=== PATIENT | male | born 1955 | race Caucasian/White ===

== ENCOUNTER 2021-05-14 13:07 | Outpatient (CLI) | payer OTHER, SELFPAY | END 2021-05-14 13:08 | disposition home or self-care (01) | LOC: ANHSURGERY 13:12 | PROVIDERS: PCP Family Medicine; Visit Provider Surgery | DX: Z01.812 Encounter for preprocedural laboratory examination (principal); K40.90 Unilateral inguinal hernia, without obstruction or gangrene, not specified as recurrent | CPT/HCPCS: 36415; 86850; 86900; 86901 ==

== ENCOUNTER 2021-05-18 00:06 | Day surgery (SDC) | payer OTHER, SELFPAY ==
[2021-05-13 13:20] VITALS: BMI 23.6
[2021-05-18] VITALS (9 sets, daily range): BP systolic 129–163; BP diastolic 76–88; PULSE 56–72; RESP 14–16; TEMP 36.6–36.8; O2SAT 95–100
[2021-05-18] MEDS: ACETAMINOPHEN 500 MG TABLET 1000 MG PO (07:22)
[2021-05-18] MEDS: LACTATED RINGERS 1,000 ML 30 ML IV CONT ×3 (07:25→11:17)
--- NOTE | 2021-05-18 07:30 | WPDANESEPPF ---
Anes - Initial Pre Proc Eval Procedure: Operation Date: 05/18/21 08:30 Proposed Procedures p Laparoscopic Right Inguinal Hernia Repair With Mesh, DaVinci Assisted - Tonny Neri DO Date/Time: 05/18/21 07:30 Surgeon: Tonny Neri DO Pre Op Diagnosis: Right Ing Hernia Patient Data Age: 65 Gender: M Height: 1.75 m Weight: 72.72 kg Allergies Allergy/AdvReac Type Severity Reaction Status Date / Time No Known Allergies Allergy Verified 05/18/21 06:50 Home Medications Medication Instructions Recorded Confirmed Type tadalafil 5 mg tablet See Rx Instructions .ROUTE 04/02/21 05/13/21 Rx .COMPLEX #90 tablet multivitamin [Multi-Vitamin] 1 tablet DAILY 05/13/21 05/18/21 History tamsulosin [Flomax] 0.4 mg PO QAM 05/13/21 05/18/21 History Patient hx anesthesia problems: post op nausea/vomiting Family hx anesthesia problems: none Results Review: All pre-operative results and documents have been reviewed as part of the pre-operative evaluation. [facility] Past Medical History Medical History (Updated 05/18/21 @ 07:30 by Didier Gallardo DO) BPH (benign prostatic hyperplasia) PONV (postoperative nausea and vomiting) Surgical History Surgical History H/O foot surgery Family History Family History Grandparent Hypertension Family history of coronary artery disease Father Family history of diabetes mellitus in first degree relative Mother Family history of coronary artery disease Social History Social History Smoking status: Never smoker Second hand tobacco smoke exposure: No Additional smoking assessment comments: PT DENIES ALL FORMS OF TOBACCO USE Alcohol intake: never Substance use: never Substance use type: does not use Living arrangements: alone Spiritual care concerns: No Anes - Eval Final PreProcedure Day of Procedure 05/18/21 07:30 Patient weight: normal Heart: regular rate and rhythm Lungs: clear to auscultation and normal air movement Airway: Mallampati scale class II Neurological: alert and oriented Last oral intake: >/= 8 hours ASA classification: II Emergent: no Anesthetic plan: proceed Anesthesia type and monitoring: general ETT and standard monitoring Results Review: All pre-operative results and documents have been reviewed as part of the pre-operative evaluation. Informed Consent: The patient's anesthetic plan and its attendant risks and benefits were discussed with the patient/family/POA. Questions were solicited and answers provided to the satisfaction of the patient/family/POA.
[2021-05-18] MEDS: KETOROLAC 15 MG/ML VIAL (*BKC) IV PUSH (07:35)
[2021-05-18] MEDS: SCOPOLAMINE 1.5 MG PATCH TRANSDERM (07:54)
--- NOTE | 2021-05-18 08:16 | PM.IMHP ---
H&P: HPI History of Present Illness Date/Time: 05/18/21 08:16 Chief Complaint: Right inguinal hernia Narrative: 65 yo man presents for right inguinal hernia repair. He reports no changes since last seen in office. Review of Systems Review of Systems: All systems reviewed & are unremarkable except as noted in HPI and below Constitutional: Constitutional: Denies chills, Denies fever(s), Denies headache(s) and Denies weight loss Eyes: Eyes: Denies change in vision ENT: Denies dizziness, Denies headache(s), Denies neck mass and Denies throat swelling Cardiovascular: Cardiovascular: Denies chest pain, Denies lightheadedness and Denies dyspnea Respiratory: Respiratory: Denies cough, Denies dyspnea and Denies wheezing Gastrointestinal: Gastrointestinal: Denies abdominal pain, Denies change in bowel habits, Denies nausea and Denies vomiting Genitourinary: Genitourinary: Denies hematuria and Denies dysuria Musculoskeletal: Musculoskeletal: Reports as per HPI Integumentary/Breasts: Skin/Breast: Reports as per HPI Neurologic: Denies dizziness and Denies headache(s) Allergic/Immunologic: Allergic/Immunologic: Denies throat swelling and Denies wheezing [facility] Past Medical History Medical History (Updated 05/18/21 @ 07:30 by Didier Gallardo DO) BPH (benign prostatic hyperplasia) PONV (postoperative nausea and vomiting) Surgical History Surgical History H/O foot surgery Family History Family History Grandparent Hypertension Family history of coronary artery disease Father Family history of diabetes mellitus in first degree relative Mother Family history of coronary artery disease Social History Social History Smoking status: Never smoker Second hand tobacco smoke exposure: No Additional smoking assessment comments: PT DENIES ALL FORMS OF TOBACCO USE Alcohol intake: never Substance use: never Substance use type: does not use Living arrangements: alone Spiritual care concerns: No Meds Home Medications and Allergies Home Medications Medication Instructions Recorded Confirmed Type tadalafil 5 mg tablet See Rx Instructions .ROUTE 04/02/21 05/13/21 Rx .COMPLEX #90 tablet multivitamin [Multi-Vitamin] 1 tablet DAILY 05/13/21 05/18/21 History tamsulosin [Flomax] 0.4 mg PO QAM 05/13/21 05/18/21 History Allergies Allergy/AdvReac Type Severity Reaction Status Date / Time No Known Allergies Allergy Verified 05/18/21 06:50 Vital Signs Vital Signs - 24 hr 05/18/21 07:37 Temperature 36.6 C Pulse Rate 72 Blood Pressure 129/76 Pulse Oximetry 97 Exam Const: General: no acute distress and alert Orientation/consciousness: patient oriented x3 HENMT: Head: normocephalic and atraumatic Ears: hearing grossly normal bilaterally General nose exam: Normal nares present Mouth: Yes Normal oral and palatal mucosa present Eyes: Periorbital: periorbital findings normal Sclera: sclerae normal EOM: EOMs intact bilaterally Neck: Neck: normal visual inspection, no lymphadenopathy and trachea midline Chest: Chest palpation & inspection: normal inspection of the chest Resp: Effort & Inspection: normal respiratory effort Auscultation: clear to auscultation bilaterally Cardio: Jugular venous distension: no JVD Rate: regular rate Rhythm: regular rhythm Heart sounds: S1 normal heart sound present and S2 normal heart sound present Peripheral pulses: Peripheral pulses 2+ throughout GI: Inspection: normal to inspection GI Palp: Yes Soft to palpation, No Tenderness to palpation present (GI), No Guarding due to palpation present (GI) and No Rebound tenderness present Percussion: Yes normal to percussion Auscultation: normal bowel sounds : General: Yes no CVA tenderness Scrotum: inguinal hernia on the right Carmen
--- NOTE | 2021-05-18 08:18 | WPDHPUPDATE1 ---
History and Physical Update Update Date/Time: 05/18/21 08:18 History and Physical has been reviewed, including an updated exam of the patient. There are NO changes in the patient's condition. Risks, benefits, and alternatives have been discussed and questions answered. Patient agrees to proceed with procedure.
[2021-05-18] MEDS: ceFAZolin 2 GM/D5W 50 ML 2 GM/50 ML BAG IVPB (08:31)
[2021-05-18] MEDS: BUPIVACAINE HCL 0.5% PF 30 ML VIAL INFILTRATE (09:09)
--- NOTE | 2021-05-18 09:45 | W.PM.PROC2 ---
Procedure Note - Detailed Date of Procedure 05/18/21 Pre-op Diagnosis Right Inguinal Hernia Post-op Diagnosis same (Indirect right inguinal hernia) Procedure Performed Laparoscopic right inguinal hernia repair with mesh, da Glynn assisted Surgeon Tonny Neri, Anesthesia general and local (0.5% bupivacaine with epinephrine) Indications This is a 65-year-old man who presents with a right groin bulge that he has noticed for about the past year. He states the bulge reduces when he lays down. He had an 18ft fall in April of 2020 which required multiple foot surgeries. During this time, he was at home for a 6 month recovery and noticed a bulge in the right groin. A reducible right inguinal hernia was identified on physical exam. Discussions were made with the patient about treatment options and decision was made to proceed with robotic assisted laparoscopic right inguinal hernia repair with mesh. Findings Laparoscopic right inguinal hernia repair was performed. A robotic transabdominal preperitoneal approach was utilized. The patient was found to have an indirect right inguinal hernia. A preperitoneal pocket was created for mesh placement and the hernia sac was completely reduced. A large right Bard 3DMax mid mesh was placed overlying the entire right myopectineal orifice. No specimens were obtained for pathology. There was no evidence of a left inguinal hernia. Description of Procedure Procedure as well as risks, benefits, and alternatives were discussed with the patient. Written consent was obtained and placed in chart prior to procedure. Patient was brought back to surgical suite. He was placed supine on operating table. Time-out was done to confirm patient and procedure. He was then intubated by Anesthesia Department. His abdomen was prepped and draped in sterile fashion using chlorhexidine prep. 0.5% bupivacaine with epinephrine was infiltrated at each location for incision. A 12 millimeter transverse incision was made just superior to the umbilicus using a 15 blade scalpel. Blunt dissection was carried out down to the linea alba. A vertical incision was made at the linea alba using a 15 blade scalpel. The peritoneum was then bluntly entered. A 12 millimeter trocar was inserted and carbon dioxide insufflation was used to create a pneumoperitoneum. A camera was inserted and the abdominal cavity was inspected. The patient was placed in slight Trendelenburg position. An 8 millimeter incision was made on the right lateral abdomen and an 8 millimeter trocar was inserted under direct visualization. Another 8 millimeter incision was made in the left lateral abdomen and an 8 millimeter trocar was inserted under direct visualization. The robotic arms were brought up to the patient's bedside and secured to the ports. The camera and instruments were inserted. I then moved over to the robotic console and took control of the camera and instruments. After careful inspection of the abdominal cavity, I began scoring the peritoneum along the right lower quadrant using scissors with electrocautery. The preperitoneal plane was entered and this was carefully dissected caudally along the inferior epigastric vessels. Careful dissection with scissors with electrocautery and blunt dissection was used to continue this dissection. I dissected far enough laterally to allow for mesh placement, and also dissected medially to identify the pubic arch and Waylon's ligament. The hernia sac was identified and carefully dissected posteriorly. The cord contents were also identified and the peritoneum was carefully dissected far enough posteriorly to allow for mesh placement. Once an adequate pocket was created, I then placed the mesh within the preperitoneal pocket and carefully unfolded it. The mesh was centered on the hernia defect with adequate overlap circumferentially. The inferior edge of the mesh was inspected to ensure that it was far enough away from the per
--- NOTE | 2021-05-18 12:20 | SUR.PHASEII ---
Patient ready for discharge per anesthesia qualifications. Requested medication to be sent to a different pharmacy. Waiting on this for discharge.
== END 2021-05-18 12:43 | disposition home or self-care (01) ==
PROVIDERS: PCP Family Medicine; Visit Provider Surgery
PROC: 8E0Y4CZ Robotic Assisted Procedure of Lower Extremity, Percutaneous Endoscopic Approach (ICD-10-PCS; CPT 49650; principal; 2021-05-18 08:30)
DX: K40.90 Unilateral inguinal hernia, without obstruction or gangrene, not specified as recurrent (principal); N40.0 Benign prostatic hyperplasia without lower urinary tract symptoms
CPT/HCPCS: 49650; S2900; 36415; 86850; 86900; 86901; A9270; J0690; J1100; J1885; J2704; J3010; J7030; J7120

== ENCOUNTER 2021-05-19 20:54 | Emergency (ER) | payer OTHER, SELFPAY ==
[2021-05-19 21:11] VITALS: BP 130/73; PULSE 94; RESP 20; TEMP 37; O2SAT 95
[2021-05-19 21:30] LABS: Basophils Percent Auto 0.4 % (0.2-1.2); Eosinophils Absolute Auto 0.1 K/mm3 (0-0.3); Hematocrit 45.1 % (42.0-52.0); Hemoglobin 15.2 g/dL (14.0-18.0); Immature Granulocyte Absolute 0.03 K/mm3 (0.00-0.031); Immature Granulocyte Percent A 0.4 % (0-0.5); Immature Platelet Fraction Pct 3.8 % (0.9-11.2); Lymphocytes Absolute Auto 1.29 K/mm3 (0.9-3.2); Lymphocytes Percent Auto 15.5 % (18.3-44.2); Mean Corpuscular HGB Conc 33.7 g/dl (32-36); Mean Corpuscular Hemoglobin 31.3 pg (26-34); Mean Corpuscular Volume 92.8 fl (80-100); Mean Platelet Volume 10.2 fl (7.4-10.4); Monocytes Absolute Auto 0.8 K/mm3 (0.1-0.6); Monocytes Percent Auto 9.9 % (2.6-8.5); Neutrophils Absolute Auto 6.1 K/mm3 (1.3-6.7); Neutrophils Percent Auto 72.8 % (45.5-73.1); Platelet Count Result 147 k/mm3 (150-375); Red Blood Count 4.86 M/mm3 (4.6-6.20); Red Cell Distribution Width 12.6 % (11.5-14.5); White Blood Count 8.3 K/mm3 (4.5-10.0)
[2021-05-19 22:05] LABS: Alanine Aminotransferase 19 U/L (4-50); Albumin Level 4.3 g/dL (3.5-5.1); Alkaline Phosphatase 61 U/L (38-126); Anion Gap 9 mmol/L (8-16); Aspartate Amino Transferase 26 U/L (17-59); Bilirubin,Total 0.4 mg/dL (0.2-1.3); Blood Urea Nitrogen 20 mg/dL (9-20); Calcium 9.3 mg/dL (8.4-10.2); Carbon Dioxide 29 mmol/L (22-30); Chloride 101 mmol/L (98-107); Estimated CRCL calculation 72 ml/min; Estimated Glomerular Filt Rate > 60; Glucose 127 mg/dL (65-110); Lipase 175 U/L (23-300); Potassium 4.1 mmol/L (3.4-5.0); Sodium 139 mmol/L (137-145)
--- NOTE | 2021-05-19 22:13 | ED.GENADULT ---
HPI - General Adult General Chief complaint: Abdominal Pain Stated complaint: stabbing abdominal pain, constipation Time Seen by Provider: 05/19/21 21:45 Source: patient and RN notes reviewed Mode of arrival: ambulatory Limitations: no limitations History of Present Illness HPI narrative: This is a 65 year old male who presents for evaluation of constipation. Patient is postop day 1 s/p right inguinal hernia repair performed by Dr. Neri. He reports 4 hours he felt urge to have bowel movement but he was unable to go. He has take Dulcolax PO and suppository without relief. He reports rectal pain but denies abdominal pain or right groin pain. He also denies nausea, vomiting, fever or chills. He has been passing gas. Related Data Home Medications Medication Instructions Recorded Confirmed multivitamin 1 tablet DAILY 05/13/21 05/18/21 tamsulosin [Flomax] 0.4 mg PO QAM 05/13/21 05/18/21 Allergies Allergy/AdvReac Type Severity Reaction Status Date / Time No Known Allergies Allergy Verified 05/19/21 21:31 Review of Systems Review of Systems: All systems reviewed & are unremarkable except as noted in HPI and below PMFSH Past Medical History Medical History (Updated 05/20/21 @ 00:00 by Michelle Leahy) BPH (benign prostatic hyperplasia) PONV (postoperative nausea and vomiting) Surgical History Surgical History (Updated 05/19/21 @ 22:16 by Marychuy Bush MD) H/O foot surgery S/P right inguinal hernia repair Family History Family History Grandparent Hypertension Family history of coronary artery disease Father Family history of diabetes mellitus in first degree relative Mother Family history of coronary artery disease Social History Social History Smoking status: Never smoker Second hand tobacco smoke exposure: No Additional smoking assessment comments: PT DENIES ALL FORMS OF TOBACCO USE Alcohol intake: never Substance use: never Substance use type: does not use Spiritual care concerns: No Exam Const: General: alert Orientation/consciousness: patient oriented x3 Eyes: EOM: EOMs intact bilaterally Resp: Effort & Inspection: normal respiratory effort and no retractions Auscultation: clear to auscultation bilaterally Cardio: Rate: regular rate Rhythm: regular rhythm Heart sounds: no murmurs GI: GI Palp: Yes Soft to palpation, No Tenderness to palpation present (GI), No Guarding due to palpation present (GI) and No Rigid due to palpation Auscultation: Hypoactive bowel sounds present Rectal Exam: fecal impaction Other: 3 port incision intact, clean, dry, no drainage, no erythema Skin: General skin exam: normal color Rashes: no rashes Neuro: General: patient oriented x3, moves all extremities and CN's II-XI intact bilaterally Psych: Mental Status: mental status grossly normal Affect: normal affect Course Reevaluation(s) Reevaluation #1: Patient was able to have bowel movement. He states he feels like he can run a mile. Labs are unremarkable and his abdomen is benign. I will notify surgery patient was in ER but otherwise he will be discharged. Date: 05/19/21 Time: 23:40 Vital Signs Vital signs: Vital Signs Temperature 98.6 F 05/19/21 21:11 Pulse Rate 94 05/19/21 21:11 Respiratory Rate 20 05/19/21 21:11 Blood Pressure 130/73 05/19/21 21:11 Pulse Oximetry 95 05/19/21 21:11 Temperature 98.6 F 05/19/21 21:11 Pulse Rate 79 05/19/21 23:57 Respiratory Rate 16 05/19/21 23:57 Blood Pressure 145/80 H 05/19/21 23:57 Pulse Oximetry 97 05/19/21 23:57 Medical Decision Making Vital Signs Vital Signs: Vital Signs Temperature 98.6 F 05/19/21 21:11 Pulse Rate 94 05/19/21 21:11 Respiratory Rate 20 05/19/21 21:11 Blood Pressure 130/73 05/19/21 21:11 Pulse Oximetry 95 05/19/21 21:11 Temperatu
--- NOTE | 2021-05-19 22:35 | PC.NURSE ---
large amount of hard stool passed after enema
[2021-05-19 23:11] VITALS: BP 141/82; PULSE 75; RESP 16; O2SAT 97
--- NOTE | 2021-05-19 23:11 | PC.NURSE ---
Assumed care of pt at this time. Report taken from Helene OSPINA. Pt states he has resolved after BM. Pt and family updated on POC.
[2021-05-19 23:57] VITALS: BP 145/80; PULSE 79; RESP 16; O2SAT 97
== END 2021-05-19 23:59 | disposition home or self-care (01) ==
PROVIDERS: Family Medicine; Emergency Provider General Practice; PCP Family Medicine
DX: K59.00 Constipation, unspecified (principal); N40.0 Benign prostatic hyperplasia without lower urinary tract symptoms
CPT/HCPCS: 36415; 80053; 83690; 85025; 85055; 99283

== ENCOUNTER 2022-07-13 09:54 | Outpatient (CLI) | payer OTHER, SELFPAY ==
--- NOTE | 2022-07-13 09:59 | ECG_ITS ---
Measurements Intervals [place] Rate: 63 P: 50 AL: 157 QRS: -4 QRSD: 100 T: 17 QT: 401 QTc: 411 Interpretive Statements SINUS RHYTHM NO PREVIOUS ECG AVAILABLE FOR COMPARISON Electronically Signed On 07-13-2022 17:59:07 DIRECTOR SPEECH by Alicia Hills M.D.
--- NOTE | 2022-07-13 09:59 | EST_ITS ---
Patient Info Name: Tonny Maza Age: 66 years : 1955 Gender: Male Ht: 69 in Wt: 165 lbs BSA: 1.92 m2 HR: 70 bpm BP: 137 / 78 mmHg Heart Rhythm: Sinus Rhythm Exam Date: 07/13/2022 10:15 AM Exam Location: [facility] Patient Status: Preadmit Admit Date: 07/13/2022 Staff Ordering Physician: Jermaine Saenz MD Attending Provider: Jermaine Saenz MD Exercise Technologist: Hodan Echevarria CT Exercise Physician: Johnnie Sin DO Exam Type: CA stress test treadmill Study Info Indications R07.9 - Chest pain, unspecified A treadmill exercise stress test was performed. Summary 1. 1. Abnormal [place] exercise stress test for ischemic ST changes by ECG criteria. 2. 2. Good functional capacity, achieving 10 METs of workload. 3. 3. Hypertensive response to exercise. 4. 4. Appropriate HR response to exercise. 5. 5. Appropriate HR recovery at 1 minute post exercise. 6. 6. No imaging with stress testing. 7. 7. Patient informed of the above results. Protocol: [place] Stress ECG Details Stage: REST Duration (min): 0 min : 55 sec Speed (mph): 0.0 Grade (%): 0 HR (bpm): 69 SBP (mmHg): 137 DBP (mmHg): 78 METS: --- Stage: REST Duration (min): 16 min : 11 sec Speed (mph): 0.0 Grade (%): 0 HR (bpm): 69 SBP (mmHg): 137 DBP (mmHg): 78 METS: --- Stage: STAGE 1 Duration (min): 1 min : 0 sec Speed (mph): 1.7 Grade (%): 10 HR (bpm): 86 SBP (mmHg): 137 DBP (mmHg): 78 METS: --- Stage: STAGE 1 Duration (min): 2 min : 0 sec Speed (mph): 1.7 Grade (%): 10 HR (bpm): 96 SBP (mmHg): 137 DBP (mmHg): 78 METS: --- Stage: STAGE 1 Duration (min): 3 min : 0 sec Speed (mph): 1.7 Grade (%): 10 HR (bpm): 90 SBP (mmHg): 171 DBP (mmHg): 80 METS: --- Stage: STAGE 2 Duration (min): 1 min : 0 sec Speed (mph): 2.5 Grade (%): 12 HR (bpm): 99 SBP (mmHg): 171 DBP (mmHg): 80 METS: --- Stage: STAGE 2 Duration (min): 2 min : 0 sec Speed (mph): 2.5 Grade (%): 12 HR (bpm): 104 SBP (mmHg): 209 DBP (mmHg): 80 METS: --- Stage: STAGE 2 Duration (min): 3 min : 0 sec Speed (mph): 2.5 Grade (%): 12 HR (bpm): 111 SBP (mmHg): 179 DBP (mmHg): 79 METS: --- Stage: STAGE 3 Duration (min): 1 min : 0 sec Speed (mph): 3.4 Grade (%): 14 HR (bpm): 120 SBP (mmHg): 183 DBP (mmHg): 78 METS: --- Stage: STAGE 3 Duration (min): 2 min : 0 sec Speed (mph): 3.4 Grade (%): 14 HR (bpm): 124 SBP (mmHg): 183 DBP (mmHg): 78 METS: --- Stage: STAGE 3 Duration (min): 2 min : 13 sec Speed (mph): 3.4 Grade (%): 14 HR (bpm): 125 SBP (mmHg): 183 DBP (mmHg): 78 METS: --- Stage: RECOVERY Duration (min): 0 min : 46 sec Speed (mph): 0.0 Grade (%): 0 HR (bpm): 99 SBP (mmHg): 180 DBP (mmHg): 80
--- NOTE | 2022-07-13 10:00 | ECHO_ITS ---
Patient Info Name: Tonny Maza Age: 66 years : 1955 Gender: Male Ht: 69 in Wt: 168 lbs BSA: 1.93 m2 HR: 69 bpm BP: 145 / 96 mmHg Heart Rhythm: Sinus Rhythm Technical Quality: Good Exam Date: 07/13/2022 11:15 AM Exam Location: [facility] Patient Status: Preadmit Admit Date: 07/13/2022 Staff Ordering Physician: Jermaine Saenz MD Shift Supervisor Melting: Kelly Duffy RDCS Attending Provider: Jermaine Saenz MD Referring Physician: Letty SANTOS; Exam Type: CA echo doppler color flow Study Info Indications R01.1 - Cardiac murmur, unspecified Complete two-dimensional, color flow and Doppler transthoracic echocardiogram is performed. Summary 1. Complete two-dimensional, color flow and Doppler transthoracic echocardiogram is performed. 2. Left ventricular chamber dimension is normal. 3. Left ventricular systolic function is normal, estimated at 60-65%. 4. There is mildly increased left ventricular wall thickness. 5. The left ventricular diastolic function is grade I diastolic dysfunction. 6. E/e' 10 is mildly elevated. 7. There is moderate aortic valve sclerosis. 8. There is mild aortic valve stenosis with a peak velocity of 171 cm/s, mean gradient of 6 mmHg, and aortic valve area of 1.7 cm2. 9. No pulmonary hypertension, estimated pulmonary arterial systolic pressure is 21 mmHg. Left Ventricle E/e' 10 is mildly elevated. Left ventricular chamber dimension is normal. Left ventricular systolic function is normal, estimated at 60-65%. There is mildly increased left ventricular wall thickness. The left ventricular diastolic function is grade I diastolic dysfunction. Right Ventricle Right ventricular systolic function is normal and with normal TAPSE 2.5 cm. Right ventricular chamber dimension is normal. Left Atria Left atrial chamber dimension is normal. Right Atria Right atrial chamber dimension is normal. Aortic Valve The aortic valve is trileaflet. There is moderate aortic valve sclerosis. There is mild aortic valve stenosis with a peak velocity of 171 cm/s, mean gradient of 6 mmHg, and aortic valve area of 1.7 cm2. There is no aortic valve regurgitation. Pulmonic Valve There is no pulmonic regurgitation. Mitral Valve There is no mitral valve stenosis. There is no mitral valve regurgitation. Tricuspid Valve There is no tricuspid valve regurgitation. No pulmonary hypertension, estimated pulmonary arterial systolic pressure is 21 mmHg. Pericardium/Pleural There is no pericardial effusion. Inferior Vena Cava Normal inferior vena cava with >50% collapse upon inspiration consistent with normal right atrial pressure, 5 mmHg. Aorta The aortic root size at the sinus of Valsalva is normal. Left Ventricular Outflow Tract Name Value Normal LVOT 2D LVOT Diameter 2.0 cm LVOT Doppler LVOT Peak Gradient 3 mmHg LVOT Mean Gradient 2 mmHg LVOT VTI 20 cm LVOT VTI/AV VTI Ratio 0.5 LVOT Stroke Volume 62 ml
== END 2022-07-13 10:00 | disposition home or self-care (01) ==
LOC: ANHCARD 08-04 14:20
PROVIDERS: PCP Family Medicine; Visit Provider Family Medicine
DX: R07.89 Other chest pain (principal); R01.1 Cardiac murmur, unspecified
CPT/HCPCS: 93005; 93017; 93306

== ENCOUNTER 2022-07-13 12:58 | Outpatient (CLI) | payer OTHER, SELFPAY ==
[2022-07-13 13:53] LABS: Cholesterol 265 mg/dL (0-200); HDL Direct 49 mg/dL; Triglycerides 153 mg/dL (<150)
[2022-07-13 14:04] LABS: LDL Cholesterol Direct 152 mg/dL
== END 2022-07-13 12:59 | disposition home or self-care (01) ==
PROVIDERS: PCP Family Medicine; Visit Provider Internal Medicine Cardiovascular Disease
DX: R07.89 Other chest pain (principal)
CPT/HCPCS: 36415; 80061

== ENCOUNTER 2023-08-02 15:11 | Outpatient (CLI) | payer MEDICARE, OTHER, SELFPAY ==
[2023-08-02 16:00] LABS: Basophils Absolute Auto 0.1 K/mm3 (0.0-0.1); Basophils Percent Auto 0.8 % (0.2-1.2); Eosinophils Absolute Auto 0.1 K/mm3 (0-0.3); Eosinophils Percent Auto 1.6 % (0-4.4); Hematocrit 44.8 % (42.0-52.0); Hemoglobin 14.3 g/dL (14.0-18.0); Immature Granulocyte Absolute 0.04 K/mm3 (0.00-0.031); Immature Granulocyte Percent A 0.5 % (0-0.5); Lymphocytes Absolute Auto 0.93 K/mm3 (0.9-3.2); Lymphocytes Percent Auto 11.3 % (18.3-44.2); Mean Corpuscular HGB Conc 31.9 g/dl (32-36); Mean Corpuscular Hemoglobin 29.1 pg (26-34); Mean Corpuscular Volume 91.1 fl (80-100); Mean Platelet Volume 9.8 fl (7.4-10.4); Monocytes Percent Auto 11.5 % (2.6-8.5); Neutrophils Absolute Auto 6.1 K/mm3 (1.3-6.7); Neutrophils Percent Auto 74.3 % (45.5-73.1); Platelet Count Result 267 k/mm3 (150-375); Red Blood Count 4.92 M/mm3 (4.6-6.20); Red Cell Distribution Width 12.8 % (11.5-14.5); White Blood Count 8.2 K/mm3 (4.5-10.0)
[2023-08-02 16:13] LABS: Anion Gap 5 mmol/L (8-16); Blood Urea Nitrogen 16 mg/dL (9-20); CRP 3.7 mg/dL (<1.0); Calcium 9.2 mg/dL (8.4-10.2); Carbon Dioxide 33 mmol/L (22-30); Chloride 100 mmol/L (98-107); Creatine Kinase 28 U/L (55-170); Estimated Glomerular Filt Rate > 60; Glucose 97 mg/dL (65-110); Potassium 4.6 mmol/L (3.4-5.0); Sodium 138 mmol/L (137-145)
[2023-08-02 16:18] LABS: Rheumatoid Factor < 12.0 IU/ML (<12)
[2023-08-02 16:34] LABS: Erythrocyte Sedimentation Rate 18 mm/hr (0-20)
[2023-08-04 11:49] LABS: ANA Cascade Screen Negative (Negative)
[2023-08-18 09:41] LABS: CMV IgG Antibody <0.60; CMV IgM Antibody <30.00
[2023-08-18 09:42] LABS: EBV Virus Capsid Ag IgM Ab <36.00
[2023-08-18 09:43] LABS: EBV Nuclear Ab Antibody >600.00; EBV Virus Capsid Ag IgG Ab >750.00
[2023-08-18 09:44] LABS: EBV Nuclear Ab Interpretation Past
== END 2023-08-02 15:12 | disposition home or self-care (01) ==
LOC: ANHLAB 15:14
PROVIDERS: PCP Family Medicine; Visit Provider Physician Assistant Medical
DX: M62.81 Muscle weakness (generalized) (principal); E78.2 Mixed hyperlipidemia; N18.4 Chronic kidney disease, stage 4 (severe)
CPT/HCPCS: 36415; 80048; 82550; 84443; 85025; 85652; 86038; 86140; 86225; 86235; 86364; 86430; 86644; 86645; 86664; 86665

== ENCOUNTER 2025-05-16 12:47 | Outpatient (CLI) | payer MEDICARE, OTHER, SELFPAY ==
--- NOTE | ~2025-05-16 | CT_ITS ---
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 TECHNIQUE: Computed tomography (CT) of the temporal bones was performed without intravenous contrast. Automated exposure control and iterative reconstruction technique were employed. The dose-length product was 375.22 mGy-cm. COMPARISON: None FINDINGS: RIGHT TEMPORAL BONE: The internal auditory canal, cochlea, vestibule, semicircular canals, vestibular aqueduct, and carotid canal are normal. There is a high riding jugular bulb. The facial nerve course, ossicles, Prussak space, scutum, tympanic membrane, mastoid air cells, and external auditory canal are normal. LEFT TEMPORAL BONE: The internal auditory canal, cochlea, vestibule, semicircular canals, vestibular aqueduct, carotid canal, jugular bulb, facial nerve course, ossicles, Prussak space, scutum, tympanic membrane, and mastoid air cells are normal. There is a 13 x 12 mm mass at the posterior wall of left external auditory canal. IMPRESSION: 1. 13 x 12 mm at the posterior wall of left external auditory canal suspicious for neoplasm. Reviewed, dictated and finalized at location E.
--- OUTSIDE RECORDS SUMMARY | 2025-05-16 12:51 | XMS_ITS | Clinical Summary ---
Author Organization [facility] Address [address] [place] [address] Care Team Providers Care Waiver Analyst Name Role Phone Jermaine Saenz MD Primary Care Provider + [phone] Brant Cole MD Unavailable [phone] Allergies Active Allergy Reactions Criticality Noted Date Comments Knwyxmv-Ijp-Ttq Reductase Inhibitors Other (See comments) Low 09/23/2022 KIDNEY FAILURE, Attributed to atorvastatin Medications tamsulosin (FLOMAX) 0.4 mg extended release capsuleIndications:b enign prostatic hyperplasia with lower urinary tract sx Take 1 capsule (0.4 mg total) by mouth base filler operator before breakfast 04/28/20 20 Active acetaminophen 500 mg capsuleIndications:P ain Take 1-2 capsules (500-1,000 mg total) by mouth every 6 (six) hours as needed for pain 10/24/19 23 Active meloxicam (MOBIC) 15 mg tablet Take 1 tablet (15 mg total) by mouth daily 11/15/19 24 Active tadalafiL (CIALIS) 5 mg tablet Take 1 tablet (5 mg total) by mouth daily as needed 10/14/19 24 Active aspirin 81 mg chewable tablet Take 4 tablets (325 mg total) by mouth daily 11/29/19 24 Active fenofibrate nanocrystallized (TRICOR) 145 mg tablet TAKE 1 TABLET BY MOUTH EVERY DAY 90 tablet 1 07/04/20 24 Active rosuvastatin (CRESTOR) 10 mg tablet TAKE 1 TABLET (10 MG TOTAL) BY MOUTH ONCE A WEEK 13 tablet 3 05/05/20 25 Active Active Problems Problem Noted Date Diagnosed Date Status post coronary artery bypass grafting 11/2022 Aftercare following surgery of the circulatory s ystem 11/23/2022 Coronary artery disease due to calcified coronar y lesion 10/18/2022 Coronary artery disease invo lving douglas coronary artery of douglas heart with unstable angina pectoris 09/27/2022 Overview (09/27/2022): Added automatically from request for surgery [id number] Abnormal stress test 09/07/2022 Overview (09/07/2022): Added automatically from request for surgery [id number] Stable angina 08/04/2022 Assessment & Plan (08/04/2022 11:28 AM INSPECTOR PLUG SEAM): New onset angina, limiting, the setting of abnormal high-risk stress test. Suggest proceeding with catheterization and if appropriate PCI. Reviewed in detail with him the indications, risks and benefits including the need prolonged dual antiplatelet therapy should he undergo PCI. He wishes to proceed. Nonrheumatic aortic valve stenosis 08/04/2022 Closed fracture of calcaneus 05/11/2020 Surgical History Surgery Date Site/Laterality Comments EAR SURGERY 07/24/2014 - 07/23/2015 FOOT SURGERY 04/23/2021 - 05/23/2021 Right pins (fell off ladder) CORONARY ARTERY BYPASS GRAFT 10/18/2022 x 3 Medical History Medical History Date Comments BPH (benign prostatic hyperplasia) Right inguinal hernia 2020 Coronary artery disease Family History Relation Name Status Comments Brother Mother Social History Tobacco Use Types Packs/Day Years Used Date Smoking Tobacco: Never Smokeless Tobacco: Never Alcohol Use Standard Drinks/Week Comments Yes 0 (1 standard drink = 0.6 oz pur e alcohol) rare OASIS D0700: Social Isolation Answer Da te Recorded Frequency of experiencing loneliness or isolatio n Never 11/15/2022 OASIS A1250: Transportation Answer Date Recorded Lack of Transportation (Medical) No 11/15/2022 Lack of Transportation (Non-Medical) No 11/15/2022 Patient Unable or Declines to Respond No 11/15/2022 OASIS B1300: Health Literacy Answer Roberto e Recorded Frequency of needing help to read materials from doctor or pharmacy Never 11/15/2022 Social Connection and Isolation Panel Answer Date Recorded In a typical week, how many times do you talk on the phone with family, friends, or neighbors? More than three times a week 10/20/2022 How often do you get togethe r with friends or relatives? More than three times a week 10/20/2022 How often do you attend chur ch or samaritan services? More than 4 times per year 10/20/2022 Do you belong to any clubs o r organizations such as sabianism groups, unions, fraternal or athletic groups, or school groups? No 10/20/2022 How often do you attend meet ings of the clubs or organizations you belong to? Never 10/20/2022 Are you , , di vorced, , never , or living with a partner? Living with partner 10/20/2022 AUDIT-C Answer Date Recorded Q1: How often do you have a drink containing alc ohol? Monthly or less 10/18/2022 Q2: How many drinks containi ng alcohol do you have on a typical day when you are drinking? 1 or 2 10/18/2022 Q3: How often do you have si x or more drinks on one occasion? Never 10/18/2022 Overall Financial Resource Strain (CARDIA) Answe r Date Recorded How hard is it for you to pa y for the very basics like food, housing, medical care, and heating? Not hard at all 10/20/2022 PHQ-2 Answer Date Recorded PHQ-2 Total Score (If total score is 3 or more points, staff should administer the PHQ-9) 0 12/06/2022 PRAPARE - Transportation Answer Date Re corded In the past 12 months, has l ack of transportation kept you from medical appointments or from getting medications? No 09/23 In the past 12 months, has l ack of transportation kept you from meetings, work, or from getting things needed for daily living? No 10/20/2022 Personal Safety Answer Date Recorded Have you ever been in or are you currently in a harmful physical or emotional relationship or is someone making you feel afraid or unsafe? Denies 07/02/2023 Sex and Gender Information Value Date Recorded Sex Assigned at Not on file Legal Sex Male 7:38 PM INSPECTOR PLUG SEAM Gender Identity Not on file Sexual Orientation Not on file Obstetrics History Last Filed Vital Signs Vital Sign Reading Time Taken Comments Blood Pressure 106/52 11/29/2023 1:08 PM CDT Pulse 60 11/29/2023 1:08 PM CDT Temperature 37.3 C (99.2 F) 07/02/2023 9:50 PM INSPECTOR PLUG SEAM Respiratory Rate 16 07/02/2023 9:50 PM INSPECTOR PLUG SEAM Oxygen Saturation 96% 11/29/2023 1:08 PM CDT Inhaled Oxygen Concentration - - Weight 77.4 kg (170 lb 9.6 oz) 11/29/2023 1:08 P M CDT Height 175.3 cm (5' 9) 11/29/2023 1:08 PM CDT Body Mass Index 25.19 11/29/2023 1:08 PM CDT Plan of Treatment Health Maintenance Due Date Last Done Comments Colon Cancer Screening-Colonoscopy 1955 Hepatitis C Screening 1955 Prostate Cancer Screening-PSA 1955 DTaP/Tdap/Td Vaccine (1 - Tdap) 09/21/1966 Hepatitis B Screening 09/21/1973 Pneumococcal vaccine 65+ (1 of 2 - PCV) 09/21/1974 Zoster Vaccine (1 of 2) 09/21/2005 Abdominal Aortic Aneurysm (AAA) Screen 09/21/2020 Well Visit 65+ 09/21/2020 Fall Risk Assessment 10/24/2023 10/23/2022 Depression Screening 12/07/2023 12/06/2022 Covid-19 Vaccine ( - season) 03/24/202507/2020, 12/31/2020 Influenza Vaccine (#1) 2025 Medical Devices Implanted Type Area Technology Consultant Device Identifier Shelf Expiration Date Model / Serial / Lot Synthes 204.830 3.5mm 6mm 30mm 2.5mm Self Tap Small Hexagonal Socket Low Profile - [id number] Implanted:Qty: 2 on 05/19/2020 by Bonnie Rodriguez MD at [facility] Right: Calcaneus Synthes I 204.830 / / Synthes 204.828 3.5mm 6mm 28mm 2.5mm Self Tap Small Hexagonal Socket Low Profile - [id number] Implanted:Qty: 3 on 05/19/2020 by Bonnie Rodriguez MD at [facility] Right: Calcaneus Synthes I 204.828 / / Synthes 204.826 3.5mm 6mm 26mm 2.5mm Self Tap Small Hexagonal Socket Low Profile - [id number] Implanted:Qty: 1 on 05/19/2020 by Bonnie Rodriguez MD at [facility] Right: Calcaneus Synthes I 204.826 / / Synthes 209.665 7.3mm 8.2mm 2.9mm 65mm Cannulated Self Tap Self Drill - [id number] Implanted:Qty: 1 on 05/19/2020 by Bonnie Rodriguez MD at [facility] Right: Calcaneus Synthes I 209.665 / / Synthes 209.660 7.3mm 8.2mm 2.9mm 60mm Cannulated Self Tap Self Drill - [id number] Implanted:Qty: 1 on 05/19/2020 by Bonnie Rodriguez MD at [facility] Right: Calcaneus Synthes I 209.660 / / Explanted Type Area Technology Consultant Device Identifier Shelf Expiration Date Model / Serial / Lot Microaire Surgical Instruments 1600-462tns Wire .062in 4in Fxatn Stainless Steel [place] Both Ends - [id number] Explanted:Qty: 4 on 05/19/2020 by Bonnie Rodriguez MD at [facility] Right: Calcaneus Microaire Surgical Instruments 1600-462T NS / / Synthes 294.56 Schanz 5mm 200mm Blunt [place] Mr Conditional Screw External - [id number] Explanted:Qty: 1 on 05/19/2020 by Bonnie Rodriguez MD at [facility] Right: Calcaneus Synthes I 294.56 / / [employer]flex [employer] Brandizi Horizon 6 Cartridge Ligate Triangulate Cross Section Heart [id number] - [id number] Explanted:Qty: 1 on 10/18/2022 at [facility] [employer] [id number] / / [employer] Weck Horizon 24 Cartridge Ligate Triangulate Cross Section Heart [id number] - [id number] Explanted:Qty: 1 on 10/18/2022 at [facility] [employer] [id number] / / Bard Peripheral Vascular Bard .25x.25in [place] Thk1.65mm Square Pledget Cardiovascular Ptfe 483825 - [id number] Explanted:Qty: 1 on 10/18/2022 at [facility] [employer]ipheral [employer]ascular [id number] / / [employer] Clip Endoscopic Ligation Chevron Heart Shaped Horizon [id number] - [id number] Explanted:Qty: 1 on 10/18/2022 at [facility] [employer] [id number] / / Insurance MEDICARE [facility] MEDICARE [employer] [place] MEDICARE MEDICARE PHYSICIANS MUTUAL LIFE INS CO [facility] MEDICARE [facility] O MEDICARE Advance Directives For more information, please contact: [phone] * Full Code (Latest Code Status on File) Date Activated Date Inactivated Comments 10/18/2022 12:22 PM 10/23/2022 4:33 PM * Full Code Date Activated Date Inactivated Comments 09/16/2022 11:18 AM 09/16/2022 7:30 PM Care Teams Waiver Analyst Relationship Specialty Start Date End Date Jermaine Saenz MD PCP - General 05/10/20 Brant Cole MD [address] [facility] [address] [place] [address] Referring Physician Cardiology 10/18/22
--- OUTSIDE RECORDS SUMMARY | 2025-05-16 12:51 | XMS_ITS | Clinical Summary ---
Author Organization [facility] Address [address] [address] Phone Care Team Providers Care End Finder Twisting Department Name Role Phone Jermaine Saenz MD Primary Care Provider [phone] Medications atorvastatin (LIPITOR) 40 MG tablet Take 40 mg by mouth every night 07/13/2022 Active tadalafil (CIALIS) 5 MG tablet Take 5 mg by mouth 1 (one) time each day 03/29/2020 Active tamsulosin (FLOMAX) 0.4 MG 24 hr capsule TAKE 1 CAPSULE BY MOUTH IN THE MORNING 05/20/2022 Active Social History Tobacco Use Types Packs/Day Years Used Date Smoking Tobacco: Never Assessed Sex and Gender Information Value Date Recorded Sex Assigned at Not on file Legal Sex Male 1:28 PM MST Gender Identity Not on file Sexual Orientation Not on file Last Filed Vital Signs Vital Sign Reading Time Taken Comments Blood Pressure 134/82 08/15/2022 1:21 PM OFFICE ASSISTANCE Pulse 78 08/15/2022 1:21 PM OFFICE ASSISTANCE Temperature - - Respiratory Rate - - Oxygen Saturation - - Inhaled Oxygen Concentration - - Weight 75.8 kg (167 lb) 08/15/2022 1:21 PM OFFICE ASSISTANCE Height - - Body Mass Index - - Plan of Treatment Health Maintenance Due Date Last Done Comments Pneumococcal PPSV23/PCV13 65 + Years / Low and Medium Risk (1 of 2 - PCV) 09/21/2005 COVID-19 Vaccine ( season) 03/24/202507/2020, 12/31/2020 Influenza Vaccine (#1) 2025 Insurance [employer] Care Teams End Finder Twisting Department Relationship Specialty Start Date End Date Jermaine Saenz MD [address] [place] [address] PCP - General Family Medicine 08/15/22
--- OUTSIDE RECORDS SUMMARY | 2025-05-16 12:51 | XMS_ITS | Clinical Summary ---
Author Organization [facility] Address [address] [place] [address] Care Team Providers Care Inspector Packager Name Role Phone Unavailable Primary Care Provider Unavailabl e Immunizations Immunization Administration Dates Next Due Covid-19, Mrna, Lnp-s, Pf, 30 Mcg/0.3 Ml Dose (P ronniezer) 01/21/2021,12/31/2020 Social History Tobacco Use Types Packs/Day Years Used Date Smoking Tobacco: Never Assessed Sex and Gender Information Value Date Recorded Sex Assigned at Not on file Legal Sex Male 3:28 PM CDT Gender Identity Not on file Sexual Orientation Not on file Plan of Treatment Health Maintenance Due Date Last Done Comments Hepatitis C Virus (HCV) Screening 1955 TdaP Immunization 1955 Cologuard 09/21/2000 Colonoscopy 09/21/2000 Colorectal Cancer Screening 09/21/2000 Immunochemical Fecal Occult Blood 09/21/2000 Pneumococcal Immunization (5 0+ years) (1 of 1 - PCV) 09/21/2005 Zoster Immunization (1 of 2) 09/21/2005 Influenza Immunization (#1) 2025 SARS-COV-2 Immunization ( - season) 2025 01/21/2021, 12/31/2020 Respiratory Syncytial Virus (RSV) Immunization (Adult) (1 - 1-dose 75+ series) 09/21/2030 Hepatitis B Immunization Aged Out No longer eligible based on patient's age to complete this topic Human Papillomavirus (HPV) Immunization Aged Out No longer eligible b ased on patient's age to complete this topic Meningococcal Immunization (ACWY) Aged Out No longer eligible b ased on patient's age to complete this topic Rotavirus Immunization Aged Out No lo nger eligible based on patient's age to complete this topic
== END 2025-05-16 12:48 | disposition home or self-care (01) ==
PROVIDERS: PCP Family Medicine; Visit Provider Otolaryngology
DX: D23.22 Other benign neoplasm of skin of left ear and external auricular canal (principal); H60.42 Cholesteatoma of left external ear
CPT/HCPCS: 70480

== ENCOUNTER 2025-05-26 00:14 | Day surgery (SDC) | payer MEDICARE, OTHER, SELFPAY ==
--- NOTE | 2025-05-23 14:13 | PC.NURSE ---
[facility] has started construction of its new state of the art ER which will open Spring 2026. With this, we anticipate parking may be a challenge for some our surgical patients and families. Parking spaces are limited but are available for all Surgical, obstetrics, and ER patients sharing this lot. If you arrive and find you are having a hard time finding a parking space, please note that we understand the challenges, please drive around the hospital and park near Hospital Entrance 1. When you enter this entrance, you can ask a volunteer to direct or take you back to the surgical waiting area to check in. We appreciate everyone?s understanding of these expected challenges while we build for your future. Report to the Outpatient Waiting Room, entrance under the green pavilion located off [address], at time __12:15 PM on date _05/26/25 . Planned Procedure Time: _2:15 PM .? Time changes happen often and if your time is changed the preop area will call you the afternoon before. - You and your visitor will be asked to self-screen and do not enter if you have any COVID symptoms. Please call surgeon if you need to reschedule. - A mask is optional within the hospital at this time. Patients may have clear liquids (water, carbonated beverages, clear teas, apple juice) until 3 hours prior to surgery (11:15 AM) with a maximum of 20 ounces. - No food from midnight until time of surgery and no smoking, or chewing tobacco (or any form of nicotine). No chewing gum, candy or mints. - Take only the following medications with a SIP of water on the morning of surgery: ____NONE DO NOT STOP ANY OF YOUR OTHER PRESCRIPTION MEDICATIONS PRIOR TO SURGERY EXCEPT THE FOLLOWING Hold all vitamins and supplements for 3 days per anesthesiologist. Medications to discontinue per physician ASPIRIN PER DR ABDUL Date to take last dose Please no make-up, nail tuvaluan, hairspray, perfume, deodorant, or body powder the day of surgery.? No jewelry (including any body piercings) or valuables the day of surgery, leave them at home.? Please take a shower or bath the night before, or the morning of, surgery with an antibacterial soap.? Wear comfortable, loose fitting clothing.? Children are encouraged to wear pajamas. - Jewelry must be removed prior to entering the operating room.? Rings and piercings that are not removed may be cut off. - The hospital will not accept responsibility for valuables.? - Please leave all valuables, including medications, at home the day of surgery. If you are going home after surgery, a licensed utility worker driver must drive you home.? - NO public transportation without another adult if you receive anesthesia. - We recommend that an adult stay with you for 24 hours following discharge. - We also recommend that you do not drive, make important decision, drink alcoholic beverages, or take any drugs that were not prescribed by your health care provider for at least 24 hours after your discharge time. Follow any additional instructions given to you from your surgeon. Telephone instructions given to __PATIENT and asked if any additional questions and then verbalized understanding. Patient advised to call surgeon office or pre surgery nurse liaison [phone] if any additional questions.
[2025-05-23 14:23] VITALS: BMI 25.1
[2025-05-26] VITALS (7 sets, daily range): BP systolic 129–151; BP diastolic 63–75; PULSE 54–82; RESP 12–18; TEMP 36.1–36.4; O2SAT 98–100
--- OUTSIDE RECORDS SUMMARY | 2025-05-26 00:18 | XMS_ITS | Clinical Summary ---
Author Organization [facility] Address [address] [place] [address] Care Team Providers Care Matchbook Maker Name Role Phone Unavailable Primary Care Provider [...] Influenza Immunization (#1) 2025 SARS-COV-2 Immunization ( season) 2025 01/21/2021, 12/31/2020 Respiratory Syncytial Virus [...]
--- OUTSIDE RECORDS SUMMARY | 2025-05-26 00:18 | XMS_ITS | Clinical Summary ---
Author Organization [facility] Address [address] [place] [address] Care Team Providers Care Cable Repairer Name Role Phone Jermaine Saenz MD Primary Care Provider [phone] Brant Cole MD Unavailable [phone] Allergies Active Allergy Reactions Criticality Noted Date Comments Nrhvgsu-Lcd-Scb Reductase Inhibitors Other (See comments) Low 09/23/2022 KIDNEY FAILURE, Attributed to atorvastatin Medications tamsulosin (FLOMAX) 0.4 mg extended release capsuleIndications:b enign prostatic hyperplasia with lower urinary tract sx Take 1 capsule (0.4 mg total) by mouth wire drawing setter before breakfast 04/28/20 20 Active acetaminophen 500 [...] lesion 10/18/2022 Coronary artery disease invo lving tetlin coronary artery of tetlin heart with unstable angina pectoris 09/27/2022 Overview (09/27/2022): Added automatically from request for surgery [id number] Abnormal stress test 09/07/2022 Overview (09/07/2022): Added automatically from request for surgery [id number] Stable angina 08/04/2022 Assessment & Plan (08/04/2022 11:28 AM ART DIRECTOR): New onset angina, limiting, the setting of [...] often do you attend chur ch or yarsanism services? More than 4 times per year 10/20/2022 Do you belong to any clubs o r organizations such as roman catholic groups, unions, fraternal or athletic groups, or [...] on file Legal Sex Male 7:38 PM ART DIRECTOR Gender Identity Not on file Sexual Orientation Not on file Last Filed Vital Signs Vital Sign Reading Time Taken Comments Blood Pressure 106/52 11/29/2023 1:08 PM CDT Pulse 60 11/29/2023 1:08 PM CDT Temperature 37.3 C (99.2 F) 07/02/2023 9:50 PM ART DIRECTOR Respiratory Rate 16 07/02/2023 9:50 PM ART DIRECTOR Oxygen Saturation 96% 11/29/2023 1:08 PM CDT [...] Depression Screening 12/07/2023 12/06/2022 Covid-19 Vaccine ( season) 03/24/202507/2020, 12/31/2020 Influenza Vaccine (#1) 2025 Medical Devices Implanted Type Area Analytics Leader Device Identifier Shelf Expiration Date Model / Serial / Lot Synthes 204.830 3.5mm 6mm 30mm 2.5mm Self Tap Small Hexagonal Socket Low Profile - [id number] Implanted:Qty: 2 on 05/19/2020 by Bonnie Rodriguez MD at [facility] Right: Calcaneus Synthes I 204.830 / / Synthes 204.828 3.5mm 6mm 28mm 2.5mm Self Tap Small Hexagonal Socket Low Profile - [id number] Implanted:Qty: 3 on 05/19/2020 by Bonnie Rodriguez MD at [facility] Right: Calcaneus Synthes I 204.828 / / Synthes 204.826 3.5mm 6mm 26mm 2.5mm Self Tap Small Hexagonal Socket Low Profile - [id number] Implanted:Qty: 1 on 05/19/2020 by Bonnie Rodriguez MD at [facility] Right: Calcaneus Synthes I 204.826 / / Synthes 209.665 7.3mm 8.2mm 2.9mm 65mm Cannulated Self Tap Self Drill - [id number] Implanted:Qty: 1 on 05/19/2020 by Bonnie Rodriguez MD at [facility] Right: Calcaneus Synthes I 209.665 / / Synthes 209.660 7.3mm 8.2mm 2.9mm 60mm Cannulated Self Tap Self Drill - [id number] Implanted:Qty: 1 on 05/19/2020 by Bonnie Rodriguez MD at [facility] Right: Calcaneus Synthes I 209.660 / / Explanted Type Area Analytics Leader Device Identifier Shelf Expiration Date Model / Serial / Lot [employer]aire Surgical Instruments 1600-462tns Wire .062in 4in Fxatn Stainless Steel [place] Both Ends - [id number] Explanted:Qty: 4 on 05/19/2020 by Bonnie Rodriguez MD at [facility] Right: Calcaneus [employer] Instruments 1600-462T NS / / Synthes 294.56 Schanz 5mm 200mm Blunt [place]car Point Mr Conditional Screw External - [id number] Explanted:Qty: 1 on 05/19/2020 by Bonnie Rodriguez MD at [facility] Right: Calcaneus Synthes I 294.56 / / [employer] Jamalon Horizon 6 Cartridge Ligate Triangulate Cross Section Heart [id number] - [id number] Explanted:Qty: 1 on 10/18/2022 at [facility] [employer] [id number] / / [employer] Weck Horizon 24 Cartridge Ligate Triangulate Cross Section Heart [id number] - [id number] Explanted:Qty: 1 on 10/18/2022 at [facility] [employer] [id number] / / Bard [employer]ipheral V[employer] Bard .25x.25in [place] Thk1.65mm Square Pledget Cardiovascular Ptfe [id number] - [id number] Explanted:Qty: 1 on 10/18/2022 at [facility] [employer] [id number] / / [employer] Clip Endoscopic Ligation Chevron Heart Shaped Horizon [id number] - [id number] Explanted:Qty: 1 on 10/18/2022 at [facility] [employer] [id number] / / Insurance MEDICARE [facility] MEDICARE PHYSIC[employer] LIFE [employer] [place] MED[place]ARE MEDICARE PHYSICIANS MUTUAL LIFE INS [place] [facility] MEDICARE [facility] O MEDICARE Advance Directives For more information, please contact: [phone] * Full Code (Latest Code Status on File) Date Activated Date Inactivated Comments 10/18/2022 12:22 PM 10/23/2022 4:33 PM * Full Code Date Activated Date Inactivated Comments 09/16/2022 11:18 AM 09/16/2022 7:30 PM Care Teams Cable Repairer Relationship Specialty Start Date End Date Jermaine Saenz MD PCP - General 05/10/20 Brant Cole MD [address] [facility] [address] [place] [address] Referring Physician Cardiology 10/18/22
--- OUTSIDE RECORDS SUMMARY | 2025-05-26 00:18 | XMS_ITS | Clinical Summary ---
Author Organization [facility] Address [address] [address] Phone Care Team Providers Care Channel Specialist Name Role Phone Jermaine Saenz MD Primary Care Provider [phone] Medications atorvastatin (LIPITOR) 40 MG tablet Take [...] Comments Blood Pressure 134/82 08/15/2022 1:21 PM IN SHOP SERVICE TECHNICIAN Pulse 78 08/15/2022 1:21 PM IN SHOP SERVICE TECHNICIAN Temperature - - Respiratory Rate - - Oxygen Saturation - - Inhaled Oxygen Concentration - - Weight 75.8 kg (167 lb) 08/15/2022 1:21 PM IN SHOP SERVICE TECHNICIAN Height - - Body Mass Index - - Plan of Treatment Health Maintenance Due Date Last Done Comments Pneumococcal PPSV23/PCV13 65 + Years / Low and Medium Risk (1 of 2 - PCV) 09/21/2005 COVID-19 Vaccine ( season) 03/24/202507/2020, 12/31/2020 Influenza Vaccine (#1) 2025 Insurance [employer] Care Teams Channel Specialist Relationship Specialty Start Date End Date Jermaine Saenz MD [address] [place] [address] PCP - General Family Medicine 08/15/22
--- NOTE | 2025-05-26 11:52 | WPDHPUPDATE1 ---
History and Physical Update Update Date/Time: 05/26/25 11:52 History and Physical has been reviewed, including an updated exam of the patient. There are NO changes in the patient's condition. Risks, benefits, and alternatives have been discussed and questions answered. Patient agrees to proceed with procedure.
[2025-05-26] MEDS: LACTATED RINGERS 1,000 ML 30 ML IV CONT (13:00)
--- NOTE | 2025-05-26 14:06 | P.PNAN_ITS ---
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 Patient Data Age: 69 Gender: M Height: 1.75 m Weight: 76.8 kg Last Vital Signs Temp 36.4 C L 05/26/25 12:25 Pulse 57 L 05/26/25 12:25 Resp 16 05/26/25 12:25 BP 129/64 05/26/25 12:25 Pulse Ox 100 05/26/25 12:25 O2 Del Method Room Air 05/26/25 12:25 Allergies Allergy/AdvReac Type Severity Reaction Status Date / Time atorvastatin AdvReac Mild Muscle Pain Verified 05/23/25 14:11 Home Medications ?Medication ?Instructions ?Recorded ?Confirmed ?Type aspirin 81 mg tablet,delayed 81 mg PO DAILY 08/02/23 1 History release (Adult Aspirin Regimen) ezetimibe 10 mg tablet 10 mg PO DAILY 04/02/2504/25 History tadalafil 5 mg tablet See Rx Instructions .Route 0 04/02/25 05/23/25 Rx .COMPLEX #90 tabs tamsulosin 0.4 mg capsule (Flomax) 0.4 mg PO QAM #90 c aps 04/02/25 05/23/25 Rx Patient hx anesthesia problems: post op nausea/vomiting Family hx anesthesia problems: none Results Review: All pre-operative results and documents have been reviewed as part of the pre- operative evaluation. REPLACED BY [facility] Past Medical History Medical History Heart murmur Chest pressure URI (upper respiratory infection) Acute pharyngitis PONV (postoperative nausea and vomiting) BPH (benign prostatic hyperplasia) Surgical History Surgical History S/P right inguinal hernia repair Laparoscopic Right Inguinal hernia repair with mesh, Piyush assisted on 05/18/21 H/O foot surgery Family History Family History Grandparent Hypertension Family history of coronary artery disease Father Family history of diabetes mellitus in first degree relative Mother Family history of coronary artery disease Social History Social History Smoking status: Never smoker Second hand tobacco smoke exposure: No Additional smoking assessment comments: PT DENIES ALL FORMS OF TOBACCO USE Alcohol intake: current Drinks per week: 1 Substance use: never Substance use type: does not use Do You Feel Safe in your Home?: Yes Lack of Transportation: No Lack of Food: Never True Current Housing: I Have Housing Concerned About Future Housing: No Difficulty Paying Gas/Electric Bills: No Difficulty Paying for Meds: No Currently Unemployed: No Difficulty w/ Childcare or Family Care: No Living arrangements: alone Spiritual care concerns: No Anes - Eval Final PreProcedure Day of Procedure 05/26/25 14:06 Patient weight: normal Heart: regular rate and rhythm Lungs: clear to auscultation Airway: Mallampati scale class II Neurological: alert and oriented Last oral intake: >/= 8 hours ASA classification: III Emergent: no Anesthetic plan: proceed Anesthesia type and monitoring: general LMA and standard monitoring Results Review: All pre-operative results and documents have been reviewed as part of the pre- operative evaluation. Informed Consent: The patient's anesthetic plan and its attendant risks and benefits were discussed with the patient/family/POA. Questions were solicited and answers provided to the satisfaction of the patient/family/POA.
--- NOTE | 2025-05-26 14:59 | WPDHPUPDATE1 ---
History and Physical Update Update Date/Time: 05/26/25 14:59 History and Physical has been reviewed, including an updated exam of the patient. There are NO changes in the patient's condition. Risks, benefits, and alternatives have been discussed and questions answered. Patient agrees to proceed with procedure. Procedure will be left ear canal cyst excision, possible post auricular approach. Microscope and endscopic approaches as well.
[2025-05-26] MEDS: LIDO 1%/EPINEPHRINE 1:100,000 20 ML VIAL 30 ML INFILTRATE (15:28)
--- NOTE | 2025-05-26 15:43 | S_PTH ---
PATIENT: Tonny Maza LOC: [facility] U#:[id number] AGE/SX: 69/M ROOM: RE05/26/[address]: Stanton Matthew MD : 1955 BED: DIS: 05/26/2025 SPEC #: [id number] RECD: 05/27/25 07:33 STATUS: LITZY GODOY #: [id number] TRESSA: 05/26/25 15:[address]: Stanton Matthew DEPT: [facility] Surgical RECD BY: Carlito Adam ENTERED: 05/27/25 07:34 SP TYPE: Surgical OTHR DR: Jermaine Saenz MD Tissues: A - Cyst Procedures: Hematoxylin and Eosin Stain Gross and Microscopic Level 4
[2025-05-26] MEDS: CIPROFLOXACIN HC OTIC 10 ML 3 DROP LEFT EAR (15:55)
--- NOTE | 2025-05-26 16:25 | W.PM.PROC2 ---
Procedure Note - Detailed Date of Procedure 05/26/25 Pre-op Diagnosis Left external ear canal cyst Post-op Diagnosis Same Procedure Performed 1. Excision of left ear canal cyst cyst measured 2 cm Surgeon Stanton Matthew MD Anesthesia General Indications See above Findings Large gelatinous cyst filled with a yellow gelatinous serous fluid. Excised completely as far as I could see. No obvious complications. Facial nerve intact after surgery. Description of Procedure Patient identified consent verified the preoperative holding area. Patient brought to the operating room. Time-out performed. General anesthesia induced LMA secure. Patient prepped draped position procedure confirmed 2nd time-out performed double prong skin hook times to utilized to open the EAC as able to see the cyst in its entirety. I injected 0.5 cc 1% lidocaine with 1 100,000 parts epinephrine in the posterior junction between the cartilaginous external ear in the canal skin. I then made a small 1.5 cm incision with a 15 blade. I then dissected the cyst in its entirety as I was going to remove the cyst it ruptured but had the entire capsule grasped. There was no active bleeding the defect that the cyst left was large enough where I split the skin in laid the skin down inside the defect which almost covered in its entirety. I then placed Gelfoam to hold the skin down in soaked Gelfoam and ciprofloxacin drops. The remainder of the ear looked great. One flap was tethered down sutured with 1 interrupted 5 0 fast gut suture. Patient tolerated the procedure very well there were no complications. I performed all dictated portions of procedure. Blood loss 1 cc. Cyst capsule was sent for pathologic analysis. Patient tolerated the procedure very well care the patient given back to Anesthesiology patient taken to PACU Estimated Blood Loss 1 Drains No Packing Yes (Gelfoam) Pathology Yes Complications No immediate complications Condition Stable Disposition PACU [facility] Billing Surgery - Charge Forward: Surgery Billing
== END 2025-05-26 17:25 | disposition home or self-care (01) ==
PROVIDERS: PCP Family Medicine; Visit Provider Otolaryngology
PROC: (CPT 69145; principal; 2025-05-26 14:15)
DX: D23.22 Other benign neoplasm of skin of left ear and external auricular canal (principal); G89.18 Other acute postprocedural pain; N40.0 Benign prostatic hyperplasia without lower urinary tract symptoms; R01.1 Cardiac murmur, unspecified; Z79.82 Long term (current) use of aspirin; Z98.890 Other specified postprocedural states; Z82.49 Family history of ischemic heart disease and other diseases of the circulatory system
CPT/HCPCS: 69145; 88305; J0166; J0690; J2003; J2004; J2405; J2704; J3010; J7120